=== PATIENT | female | born 1975 | race African-American/Black ===

== ENCOUNTER 2016-04-22 19:53 | Emergency (ER) | payer MEDICAID ==
[2016-04-22 19:58] VITALS: BP 139/96; PULSE 108; RESP 16; TEMP 98.4; O2SAT 94
[2016-04-22] MEDS ORDERED: SKIN ADHESIVE (DERMABOND) 1 EACH TP ONE ×2 (20:19→20:38)
--- NOTE | 2016-04-22 20:23 | EDPHY ---
H & P Stated Complaint: r hand laceration - Personal History LMP (Females 10-55): Now Current Tetanus/Diphtheria Vaccine: Yes Tetanus Vaccine Date: 12/2013 - Medical/Surgical History Hx Asthma: No Hx Chronic Respiratory Disease: No Hx Diabetes: No Hx Cardiac Disease: No Hx Renal Disease: No Hx Cirrhosis: No Hx Alcoholism: No Hx HIV/AIDS: No Hx Splenectomy or Spleen Trauma: No Other PMH: PMHx: Denies. PSHx: denies - Social History Smoking Status: Current every day smoker HPI/ROS: CHIEF COMPLAINT: Hand laceration HISTORY OF PRESENT ILLNESS: right hand dominant patient complains of laceration to the base of the right thumb that occurred this evening while washing dishes. She thinks it was a glass bowl in The sink that had a sharp edge. she sustained a laceration to the thenar eminence of the right hand. This is very superficial and she was hesitant to even come to the emergency department. No deficits of the flexor apparatus. No significant pain. No complaints distal to the injury. Her last tetanus shot was given less than 10 years ago. No injuries elsewhere. No other associated complaints or modifying factors. REVIEW OF SYSTEMS: Ten systems reviewed and are negative unless otherwise noted in the HPI EXAMINATION General Appearance: Alert, no distress Head: normocephalic, atraumatic Eyes: Pupils equal and round, no conjunctival pallor or injection Neck: Normal inspection Respiratory: No retractions or distress Cardiovascular: Regular rate. high-risk cap refill in all 10 fingers failure symmetric pulses radially Gastrointestinal: no abdominal distention Neurological: A&O, sensory intact bilaterally. Strength is 5/5 both upper extremities. Two-point sensation intact in the affected extremity Skin: Warm and dry. 2 cm superficial laceration of the thenar eminence of the right thumb. No foreign body. Neurovascular intact distally Extremities: laceration to right thumb is noted. Range of motion is fully intact including flexion, extension, opposition, abduction and abduction. MDM: Superficial laceration of the right thumb over the thenar eminence. There is no foreign body. There is no abnormality distally to the wound. There is full range of motion. Wound will be cleaned and closed with Dermabond skin glue was there is no indication for suture repair. Routine wound care as discussed. Follow up as needed. PROCEDURE: Procedure: thumb laceration Consent: verbal Location: right thumb, thenar eminence Length of repair: 2 cm Complexity: simple Layer involvement: single Anesthesia: none Irrigation: routine Debridement: none Procedure description: wound was cleaned with routine preparation. No foreign body. Skin glue was applied as routine x5. There is good approximation of wound margins. Neurovascular intact distally following the procedure. No complications. Suture/Staple material: skin glue Wound care: as discussed. No topical applications until skin glue dissolves Suture/Staple removal: none SUPERVISION: This patient was independently evaluated without the aide of supervising physician. (Ammon Reynolds) Constitutional: Initial Vital Signs Temperature (C) 36.9 C 04/22/16 19:55 Heart Rate 108 H 04/22/16 19:55 Respiratory Rate 16 04/22/16 19:55 Blood Pressure 139/96 H 04/22/16 19:55 O2 Sat (%) 94 04/22/16 19:55 O2 Delivery Mode Room Air Allergies/Adverse Reactions: No Known Allergies Allergy (Verified 10/01/14 19:40) Home Medications: Medication Instructions Recorded NK [No Known Home Meds] 04/22/16 Medical Decision Making Other Provider: The patient wasevaluatedand managed by themndlevel provider. My co- signature indicates that ave reviewed this chart and I agree with the findings and plan of care asdocumented. I am the secondary supervising physician. (Arabella Echols) - Data Points Medications Given: Discontinued Medications Octyl Cyanoacrylate (Dermabond) 1 each TP EDNOW ONE Stop: 04/22/16 20:39 Last Admin: 04/22/16 20:40 Dose: 1 each Departure - Departure Disposition: Home, Routine, Self-Care Clinical Impression: Laceration Condition: Good Instructions: Laceration (ED), Skin Adhesive Care (ED) Additional Instructions: no topical applications to the wound until the skin glue as completely dissolved. No vigorous scrubbing. Return to the emergency department for any signs or symptoms of infection as discussed. Referrals: NONE *PRIMARY CARE P,. [Primary Care Provider] - As per Instructions
== END 2016-04-22 20:52 | disposition home or self-care (01) ==
PROC: 0HQFXZZ Repair Right Hand Skin, External Approach (ICD-10-PCS; principal; 2016-04-22)
DX: S61.021A Laceration with foreign body of right thumb without damage to nail, initial encounter (principal); F17.200 Nicotine dependence, unspecified, uncomplicated; W25.XXXA Contact with sharp glass, initial encounter

== ENCOUNTER 2016-07-10 06:07 | Emergency (ER) | payer MEDICAID ==
--- NOTE | 2016-07-10 06:14 | EDPHY ---
H & P Stated Complaint: fever, malaise, MARTINEZ, prod cough x1 week HPI/ROS: HPI CHIEF COMPLAINT: Fever, chills, muscle aches, hyper skin sensitivity, cough with productive green sputum HISTORY OF PRESENT ILLNESS: This patient very pleasant 40-year-old female denies any significant medical history or surgical history presents emergency room with 1 week or 7 days of joint pain, muscle aches, skin sensitivity, cough that is turn productive with green sputum and fever. Patient tells me her last few was 101 at around 6:30 pm last night. Last dose of Tylenol Motrin was earlier in the day around 9:30 a.m.. She is not taking the antipyretics this evening. She decided to come to the emergency room early this morning around 615am, as she cannot sleep. She complaining muscle aches joint pain skin hypersensitivity. She denies stiff neck or severe headache. She does complain of a throbbing headache at times over the past week. No meningeal signs. She does endorse nausea no vomiting. No urinary symptoms. No flank pain. She endorses 2 episodes of watery diarrhea no blood. No abdominal pain. Past Medical History: No significant medical history Past Surgical History: No significant surgical history Social History: Denies daily use of drugs alcohol tobacco products lives locally Family History: Noncontributory ROS REVIEW OF SYSTEMS: A comprehensive 10 point review of systems is otherwise negative aside from elements mentioned in the history of present illness. Exam Constitutional appears well nontoxic triage nursing summary reviewed, vital signs reviewed, awake/alert. (tachycardia) Eyes normal conjunctivae and sclera, EOMI, PERRLA. HENT normal inspection, atraumatic, moist mucus membranes, no epistaxis, neck supple/ no meningismus, no raccoon eyes. Respiratory clear to auscultation bilaterally, normal breath sounds, no respiratory distress, no wheezing. Cardiovascular tachycardic, regular rhythm, no murmur, no edema, distal pulses normal. Gastrointestinal soft, non-tender, no rebound, no guarding, normal bowel sounds, no distension, no pulsatile mass. Genitourinary no CVA tenderness. Musculoskeletal no midline vertebral tenderness, full range of motion, no calf swelling, no tenderness of extremities, no meningismus, good pulses, neurovascularly intact. Skin no rash, pink, warm, & dry, no rash, skin atraumatic. Neurologic no meningeal signs,awake, alert and oriented x 3, AAOx3, moves all 4 extremities equally, motor intact, sensory intact, CN II-XII intact, normal cerebellar, normal vision, normal speech. Psychiatric normal mood/affect. Heme/Lymph/Immune no lymphadenopathy. Differential Diagnosis: includes but is not limited to in a particular order, viral syndrome, upper respiratory tract infection, viral pneumonia, bacterial pneumonia, sepsis, bacteremia, influenza, dehydration, electrolyte abnormality, UTI Medical Decision Making: Plan for this patient should have an IV established obtain blood work, will test for influenza she will two view chest x-ray to rule pneumonia, patient received IV fluids. Ibuprofen for pain control. She has no fever here no meningeal signs she appears well nontoxic. Will check urinalysis, chest x-ray, blood work and influenza. Re-evaluation: ED x-ray chest two view: negative for acute cardiopulmonary disease. Specifically I do not appreciate acute focal pneumonia. 0700AM: Patient is positive for influenza B this is what is causing her muscle aches, joint pain, sensitive skin. She initially came in here afebrile heart rate 130s. She is receiving her 2nd L fluid at this time. I will allow her to go home after heart rate comes down and she is well-hydrated. She understands drink lots of fluids stay well hydrated keep her fever down with Tylenol Motrin. Return to the emergency room if any worsening symptoms. No pneumonia visualized on her chest x-ray. Blood work is reassuring influenza B positive. Source: Patient - Personal History LMP (Females 10-55): Now Current Tetanus/Diphtheria Vaccine: Yes Current Tetanus Diphtheria and Acellular Pertussis (TDAP): Yes Tetanus Vaccine Date: 12/2013 - Medical/Surgical History Hx Asthma: No Hx Chronic Respiratory Disease: No Hx Diabetes: No Hx Cardiac Disease: No Hx Renal Disease: No Hx Cirrhosis: No Hx Alcoholism: No Hx HIV/AIDS: No Hx Splenectomy or Spleen Trauma: No Other PMH: PMHx: Denies. PSHx: denies - Social History Smoking Status: Former smoker Constitutional: Initial Vital Signs Temperature (C) 37.3 C 07/10/16 06:11 Heart Rate 135 H 07/10/16 06:11 Respiratory Rate 18 07/10/16 06:11 Blood Pressure 105/86 H 07/10/16 06:11 O2 Sat (%) 94 07/10/16 06:11 O2 Delivery Mode Room Air Allergies/Adverse Reactions: No Known Allergies Allergy (Verified 10/01/14 19:40) Home Medications: Medication Instructions Recorded NK [No Known Home Meds] 04/22/16 Medical Decision Making - Data Points Laboratory Results: Laboratory Results 07/10/16 06:30 07/10/16 07/10/16 07/10/16 06:30 06:30 06:30 WBC 6.63 10^3/uL 10^3/uL (3.80-9.50) RBC 5.74 10^6/uL H 10^6/uL (4.18-5.33) Hgb 13.8 g/dL g/dL (12.6-16.3) Hct 42.5 % % (38.0-47.0) MCV 74.0 fL L fL (81.5-99.8) MCH 24.0 pg L pg (27.9-34.1) MCHC 32.5 g/dL g/dL (32.4-36.7) RDW 16.0 % H % (11.5-15.2) Plt Count 279 10^3/uL 10^3/uL (150-400) MPV 9.5 fL fL (8.7-11.7) Neut % (Auto) 51.4 % % (39.3-74.2) Lymph % (Auto) 37.4 % % (15.0-45.0) [place] % (Auto) 10.3 % % (4.5-13.0) Eos % (Auto) 0.3 % L % (0.6-7.6) Baso % (Auto) 0.3 % % (0.3-1.7) Nucleat RBC Rel Count 0.0 % % (0.0-0.2) Absolute Neuts (auto) 3.41 10^3/uL 10^3/uL (1.70-6.50) Absolute Lymphs (auto) 2.48 10^3/uL 10^3/uL (1.00-3.00) Absolute Monos (auto) 0.68 10^3/uL 10^3/uL (0.30-0.80) Absolute Eos (auto) 0.02 10^3/uL L 10^3/uL (0.03-0.40) Absolute Basos (auto) 0.02 10^3/uL 10^3/uL (0.02-0.10) Absolute Nucleated RBC 0.00 10^3/uL 10^3/uL (0-0.01) Immature Gran % 0.3 % % (0.0-1.1) Immature Gran # 0.02 10^3/uL 10^3/uL (0.00-0.10) VBG Lactic Acid 0.9 mmol/L mmol/L (0.7-2.1) Sodium Potassium Chloride Carbon Dioxide Anion Gap BUN Creatinine Estimated GFR Glucose Calcium Total Bilirubin Conjugated Bilirubin Unconjugated Bilirubin AST ALT Alkaline Phosphatase Total Protein Albumin Influenza Typ A,B (DFA) POSITIVE FOR FLU B H (NEGATIVE) 07/10/16 06:30 WBC RBC Hgb Hct MCV MCH MCHC RDW Plt Count MPV Neut % (Auto) Lymph % (Auto) [place] % (Auto) Eos % (Auto) Baso % (Auto) Nucleat RBC Rel Count Absolute Neuts (auto) Absolute Lymphs (auto) Absolute Monos (auto) Absolute Eos (auto) Absolute Basos (auto) Absolute Nucleated RBC Immature Gran % Immature Gran # VBG Lactic Acid Sodium Pending Potassium Pending Chloride Pending Carbon Dioxide Pending Anion Gap Pending BUN Pending Creatinine Pending Estimated GFR Pending Glucose Pending Calcium Pending Total Bilirubin Pending Conjugated Bilirubin Pending Unconjugated Bilirubin Pending AST Pending ALT Pending Alkaline Phosphatase Pending Total Protein Pending Albumin Pending Influenza Typ A,B (DFA) Medications Given: Discontinued Medications Sodium Chloride (Ns) 2,000 mls @ 0 mls/hr IV ONCE ONE PRN Reason: Wide Open Stop: 07/10/16 06:19 Last Admin: 07/10/16 06:34 Dose: 2,000 mls Ibuprofen (Motrin) 800 mg PO EDNOW ONE Stop: 07/10/16 06:20 Last Admin: 07/10/16 06:34 Dose: 800 mg Departure - Departure Disposition: Home, Routine, Self-Care Clinical Impression: Dehydration, Viral syndrome, Influenza B Condition: Good Instructions: Influenza (ED) Additional Instructions: 1. Make sure to drink lots of fluids stay well-hydrated. 2. keep her fever down Tylenol and Motrin you can alternate these every 4 hours. 3. Return emergency room if develops worsening symptoms includes high fever, vomiting shortness of breath chest pain or you do not feel well. Referrals: NONE *PRIMARY CARE P,. [Primary Care Provider] - As per Instructions
[2016-07-10] MEDS ORDERED: NS 2,000 ML IV ONE (06:18)
[2016-07-10] MEDS ORDERED: IBUPROFEN 200 MG TAB PO ONE (06:19)
[2016-07-10 06:46] LABS: % IMMATURE GRANULYOCYTES 0.3 % (0.0-1.1); ABSOLUTE IMMATURE GRANULOCYTES 0.02 10^3/uL (0.00-0.10); ADD DIFF? NO; ADD MORPH? NO; ADD SCAN? NO; ATYPICAL LYMPHOCYTE FLAG 50 (0-99); FRAGMENT RBC FLAG 10 (0-99); HEMATOCRIT 42.5 % (38.0-47.0); HEMOGLOBIN 13.8 g/dL (12.6-16.3); LEFT SHIFT FLG 0 (0-99); LIPEMIA HEMOLYSIS FLAG 80 (0-99); MEAN CELL HEMOGLOBIN CONCENTR. 32.5 g/dL (32.4-36.7); MEAN PLATELET VOLUME 9.5 fL (8.7-11.7); PLATELET CLUMPS FLAG 0 (0-99); PLATELET COUNT 279 10^3/uL (150-400); RED BLOOD CELL COUNT 5.74 10^6/uL (4.18-5.33)
[2016-07-10 07:01] VITALS: RESP 16
[2016-07-10 07:02] LABS: ALANINE AMINOTRANSFERASE 29 IU/L (9-52); ALBUMIN 4.3 g/dL (3.5-5.0); ALKALINE PHOSPHATASE 65 IU/L (38-126); ANION GAP 13 mEq/L (8-16); ASPARTATE AMINOTRANSFERASE 26 IU/L (14-46); BILIRUBIN,TOTAL 0.4 mg/dL (0.1-1.4); BILIRUBIN-CONJUGATED 0.4 mg/dL (0.0-0.5); CALCIUM 9.1 mg/dL (8.5-10.4); CARBON DIOXIDE 21 mEq/l (22-31); CHLORIDE 104 mEq/L (97-110); CREATININE 0.9 mg/dL (0.6-1.0); GLOMERULAR FILTRATION RATE > 60; GLUCOSE 133 mg/dL (70-100); POTASSIUM 4.1 mEq/L (3.5-5.2); SODIUM 138 mEq/L (134-144); TOTAL PROTEIN 7.7 g/dL (6.3-8.2)
[2016-07-10 08:13] VITALS: BP 110/82; PULSE 92; TEMP 98.7; O2SAT 91
== END 2016-07-10 08:11 | disposition home or self-care (01) ==
DX: J10.1 Influenza due to other identified influenza virus with other respiratory manifestations (principal); E86.0 Dehydration; B34.9 Viral infection, unspecified; Z87.891 Personal history of nicotine dependence

== ENCOUNTER → 2016-09-03 | Outpatient (CLI) | payer MEDICAID | LOC: FIMAGING 13:44 | PROVIDERS: ATTEND Nurse Practitioner Women's Health | DX: N63 Unspecified lump in breast (principal) | CPT/HCPCS: G0204 ==

== ENCOUNTER 2016-11-27 18:28 | Emergency (ER) | payer MEDICAID ==
[2016-11-27 18:47] VITALS: O2SAT 96
--- NOTE | 2016-11-27 22:13 | EDPHY ---
H & P Stated Complaint: "History of Strep" sore throat x 3 days HPI/ROS: HPI CHIEF COMPLAINT: Sore throat x3 days HISTORY OF PRESENT ILLNESS: This patient otherwise healthy 41-year-old female, no significant medical history does not take any daily medications, no allergies , she presents emergency room 3 days of sore throat. Denies fever. Denies trouble swallowing. Denies drooling. No change in voice. States she has had strep throat multiple times. Past Medical History: Strep pharyngitis. Past Surgical History: No recent surgery Social History: Denies daily use of drugs alcohol tobacco products. Family History: Noncontributory ROS REVIEW OF SYSTEMS: A comprehensive 10 point review of systems is otherwise negative aside from elements mentioned in the history of present illness. Exam Constitutional appears well nontoxic, vital signs stable. triage nursing summary reviewed, vital signs reviewed, awake/alert. Eyes normal conjunctivae and sclera, EOMI, PERRLA. HENT oropharynx 3+ tonsillar bed erythema, no exudate, uvula midline, no signs of Darius's, normal inspection, atraumatic, moist mucus membranes, no epistaxis, neck supple/ no meningismus, no raccoon eyes. Respiratory clear to auscultation bilaterally, normal breath sounds, no respiratory distress, no wheezing. Cardiovascular rate normal, regular rhythm, no murmur, no edema, distal pulses normal. Gastrointestinal soft, non-tender, no rebound, no guarding, normal bowel sounds, no distension, no pulsatile mass. Genitourinary no CVA tenderness. Musculoskeletal no midline vertebral tenderness, full range of motion, no calf swelling, no tenderness of extremities, no meningismus, good pulses, neurovascularly intact. Skin pink, warm, & dry, no rash, skin atraumatic. Neurologic awake, alert and oriented x 3, AAOx3, moves all 4 extremities equally, motor intact, sensory intact, CN II-XII intact, normal cerebellar, normal vision, normal speech. Psychiatric normal mood/affect. Heme/Lymph/Immune no lymphadenopathy. Differential Diagnosis: Includes but is not limited to in a particular order, viral pharyngitis, strep pharyngitis, mono Medical Decision Making: Plan for this patient rapid strep is negative. However given her recurrent strep pharyngitis will treat empirically. Amoxicillin. Close ENT follow-up. She understands return emergency room if she has any worsening symptoms questions concerns. 1st dose of amoxicillin given here in emergency room prescription for rest. 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 Source: Patient - Personal History LMP (Females 10-55): Irregular Current Tetanus Diphtheria and Acellular Pertussis (TDAP): Yes Tetanus Vaccine Date: 12/2013 - Medical/Surgical History Hx Asthma: No Hx Chronic Respiratory Disease: No Hx Diabetes: No Hx Cardiac Disease: No Hx Renal Disease: No Hx Cirrhosis: No Hx Alcoholism: No Hx HIV/AIDS: No Hx Splenectomy or Spleen Trauma: No Other PMH: Hx strep throat - Social History Smoking Status: Former smoker Constitutional: Initial Vital Signs Temperature (C) 37.0 C 11/27/16 18:43 Heart Rate 96 11/27/16 18:43 Respiratory Rate 14 11/27/16 18:43 Blood Pressure 128/81 H 11/27/16 18:43 O2 Sat (%) 96 11/27/16 18:43 O2 Delivery Mode Room Air Allergies/Adverse Reactions: No Known Allergies Allergy (Verified 10/01/14 19:40) Home Medications: Medication Instructions Recorded Amoxicillin 500 mg PO TID 7 Days 11/27/16 Medical Decision Making - Data Points Laboratory Results: 11/27/16 11/27/16 Unknown 19:30 Group A Strep Screen NEGATIVE (NEGATIVE) Group A Strep DNA Pending Departure - Departure Disposition: Home, Routine, Self-Care Clinical Impression: Pharyngitis Qualifiers: Pharyngitis/tonsillitis etiology: unspecified etiology Qualified Code(s): J02.9 - Acute pharyngitis, unspecified Condition: Good Instructions: Pharyngitis (ED) Additional Instructions: 1. Drink lots of fluids stay well-hydrated. 2. Take ibuprofen or Tylenol for pain control. 3. Complete her course of antibiotics. 4. Follow up with ENT. Referrals: UNKNOWN,DOCTOR [Other] - As per Instructions Harvey Lomeli MD [Medical Doctor] - As per Instructions Prescriptions: Amoxicillin 500 mg PO TID 7 Days
[2016-11-27 22:21] VITALS: BP 121/74; PULSE 787; RESP 16; TEMP 98.2
== END 2016-11-27 22:21 | disposition home or self-care (01) ==
DX: J02.9 Acute pharyngitis, unspecified (principal); Z87.891 Personal history of nicotine dependence

== ENCOUNTER 2017-06-04 14:33 | Emergency (ER) | payer MEDICAID ==
[2017-06-04] MEDS ORDERED: HYDROCODONE/APAP 5/325 TAB PO ONE (15:18)
[2017-06-04] MEDS ORDERED: IBUPROFEN 600 MG TAB PO ONE (15:18)
--- NOTE | 2017-06-04 15:20 | EDPHY ---
H & P Time Seen by Provider: 06/04/17 15:06 HPI/ROS: CHIEF COMPLAINT: Left knee pain HISTORY OF PRESENT ILLNESS: 11:00 a.m. Patient was pivoting off the couch and moved her knee and had sudden onset of pain. It is located mostly just superior to her patella and worse with any attempt extend the knee. No direct blow and no weakness or numbness in the foot. REVIEW OF SYSTEMS: No skin changes PAST MEDICAL HISTORY: 3 knee surgeries including left ACL, meniscus repair, and a debridement. Last [place] [address] [place] in [place] General Appearance: Alert and conversant, cooperative. Left knee is not swollen and no effusion is noted. Held in flexion and can't really extended. Passive extension is stopped by pain with the patient at 45. No joint line tenderness. Stable to anterior and posterior drawer and negative Minor's. Normal distal motor sensory and vascular. Skin intact. Can range her knee 90-45 without pain. Emergency Department course/MDM: Oral ibuprofen 600, 1 Vicodin. Clinical suspicion for quadriceps tendon rupture. Left knee x-ray ordered. She does have crutches. 1600: X-rays reviewed, knee immobilizer and pain medications, orthopedic follow -up next week. Warned also possible could have meniscal injury, will need orthopedic follow-up in the office for definitive diagnosis and treatment. Smoking Status: Former smoker Constitutional: Initial Vital Signs Temperature (C) 36.7 C 06/04/17 14:40 Heart Rate 84 06/04/17 14:40 Respiratory Rate 18 06/04/17 14:40 Blood Pressure 151/102 H 06/04/17 14:40 O2 Sat (%) 97 06/04/17 14:40 O2 Delivery Mode Room Air Allergies/Adverse Reactions: No Known Allergies Allergy (Verified 06/04/17 14:40) Home Medications: Medication Instructions Recorded Hydrocodone/APAP 5/325 [[place] 1 - 2 tab PO Q4-6PRN PRN #11 tab 06/04/17 5/325] MDM/Departure - MDM Imaging Results: Imaging Impressions Knee X-Ray 06/04/17 15:18 Impression: Post ACL repair, with moderate tricompartmental osteoarthritis, that has overall significantly progressed since February 2012. Medications Given: Discontinued Medications Hydrocodone Bitart/Acetaminophen ([place] 5/325) 1 tab PO EDNOW ONE Stop: 06/04/17 15:19 Last Admin: 06/04/17 15:21 Dose: 1 tab Ibuprofen (Motrin) 600 mg PO EDNOW ONE Stop: 06/04/17 15:19 Last Admin: 06/04/17 15:21 Dose: 600 mg - Depart Disposition: Home, Routine, Self-Care Clinical Impression: possible left quadriceps tendon rupture Knee pain, left Qualifiers: Chronicity: acute Qualified Code(s): M25.562 - Pain in left knee Condition: Good Instructions: Knee Pain (ED), Knee Immobilizer (ED) Prescriptions: Hydrocodone/APAP 5/325 [[place] 5/325] 1 - 2 tab PO Q4-6PRN PRN #11 tab PRN Reason: For Pain Referrals: Mayur Curry MD [Medical Doctor] - 2-3 days without fail
[2017-06-04 16:05] VITALS: BP 136/96; PULSE 98; RESP 20; TEMP 98.2; O2SAT 99
== END 2017-06-04 16:33 | disposition home or self-care (01) ==
DX: M25.562 Pain in left knee (principal); Z87.891 Personal history of nicotine dependence

== ENCOUNTER → 2017-06-15 | Outpatient (CLI) | payer MEDICAID | LOC: FIMAGING 14:53 | PROVIDERS: ATTEND Advanced Practice Midwife | DX: R92.8 Other abnormal and inconclusive findings on diagnostic imaging of breast (principal) ==

== ENCOUNTER 2017-09-22 18:15 | Emergency (ER) | payer MEDICAID ==
[2017-09-22 18:21] VITALS: BP 111/70
--- NOTE | 2017-09-22 19:38 | EDPHY ---
H & P Stated Complaint: itchy rash for 3 days Source: Patient Exam Limitations: No limitations - Personal History LMP (Females 10-55): 15-21 Days Ago Current Tetanus Diphtheria and Acellular Pertussis (TDAP): Yes Tetanus Vaccine Date: 12/2013 - Medical/Surgical History Hx Asthma: No Hx Chronic Respiratory Disease: No Hx Diabetes: No Hx Cardiac Disease: No Hx Renal Disease: No Hx Cirrhosis: No Hx Alcoholism: No Hx HIV/AIDS: No Hx Splenectomy or Spleen Trauma: No Other PMH: ACL repair in past - Social History Smoking Status: Current some day smoker Time Seen by Provider: 09/22/17 19:35 HPI/ROS: HPI: This is a 41-year-old female who presents with Chief Complaint: Rash Location: Arms torso neck Quality: Rash Duration: 3 days Signs and Symptoms: no fever, no nausea, no vomiting, no diarrhea, no urinary symptoms, no chest pain, no shortness of breath, no wheezing, no cough, no sore throat, no neck stiffness, no joint pain, no swollen glands, no ear pain, + rash Timing: Daily Severity: [id number] Context: Patient presents with complaints of generalized rash that is pruritic in nature for the last 3 days that is not responding to Benadryl and over-the- counter steroid cream. She denies any previous history of psoriasis or eczema. She has not eaten any new foods or tried any new detergents, lotions, perfumes. She denies actually having hives. She describes the rash as tiny pinpoint raised normal pigmented lesions covering her arms abdomen back neck and legs. No other family member have this rash. Patient denies any fever, sore throat, upper respiratory symptoms. Modifying Factors: See above Comment: ROS: see HPI Constitutional: + fever, no chills, no weight loss Eyes: No blurred vision Respiratory: No shortness of breath, no cough Cardiovascular: No chest pain, no palpitations Gastrointestinal: No nausea, no vomiting, no diarrhea, no hematemesis, no blood in stool Genitourinary: No dysuria, no blood in urine Extremities: No myalgias, no edema Neurologic: No weakness, no numbness Skin: No rashes, no petechiae Hematologic: No bruising, no bleeding MEDICAL/SURGICAL/SOCIAL HISTORY: Medical history: Generally healthy. Does not take any regular medications. Surgical history: ACL repair Social history: Family history noncontributory. CONSTITUTIONAL: Extremely well-appearing polite and cooperative female, awake and alert, no obvious distress HEENT: Atraumatic and normocephalic, PERRL, EOMI. Nares patent; no rhinorrhea; no nasal mucosal edema. Tympanic membranes clear. Oropharynx clear, no exudate and moist pink mucosa. Airway patent. No lymphadenopathy. No meningismus. Cardiovascular: Normal S1/S2, regular rate, regular rhythm, without murmur rub or gallop. PULMONARY/CHEST: Symmetrical and nontender. Clear to auscultation bilaterally. Good air movement. No accessory muscle usage. ABDOMEN: Soft, nondistended, nontender, no rebound, no guarding, no peritoneal signs, no masses or organomegaly. No CVAT. EXTREMITIES: 2/2 pulses, strength 5/5, no deformities, no clubbing, no cyanosis or edema. NEUROLOGICAL: no focal neuro deficits. GCS 15. SKIN: Warm and dry, fine pinpoint normal pigmented rash noted on arms torso neck legs; blanches with palpation; no vesicles; no blisters; no petechiae. no erythema. no rash. Good capillary refill. (Sarahy Dangelo) Constitutional: Initial Vital Signs Temperature (C) 36.6 C 09/22/17 18:19 Heart Rate 88 09/22/17 18:19 Respiratory Rate 17 09/22/17 18:19 Blood Pressure 111/70 09/22/17 18:19 O2 Sat (%) 97 09/22/17 18:19 O2 Delivery Mode Room Air Allergies/Adverse Reactions: No Known Allergies Allergy (Verified 09/22/17 18:18) Home Medications: Medication Instructions Recorded predniSONE [predniSONE TAPER] 10 mg PO DAILY 6 Days ea 09/22/17 Medical Decision Making ED Course/Re-evaluation: I did not see this patient while she was in the emergency department. However her care was discussed with the PA while the patient was in the department. I agree with treatment plan and management (Domenic Sesay) Vital signs reviewed and stable. No systemic signs. Patient does not have any upper respiratory symptoms or sore throat to indicate scarlatina. Patient was given a 6 days steroid taper. No signs of scabies or bedbugs. This patient was seen under the supervision of my secondary supervising physician. I evaluated care for this patient independently. Discussed this patient with Dr. Sesay who did not see the patient. (Sarahy Dangelo) Differential Diagnosis: Differential diagnosis includes but is not limited to scarlet tenia, contact dermatitis, allergic reaction, anaphylaxis, ITP. (Sarahy Dangelo) Departure - Departure Disposition: Home, Routine, Self-Care Clinical Impression: Rash in adult, Dermatitis Condition: Good Instructions: Contact Dermatitis (ED) Additional Instructions: Take steroid taper as directed. Use Benadryl 25-50 mg every 4-6 hours as needed for itching, allergic reaction. Referrals: [facility],. [Clinic] - 5-7 days, if not improved Prescriptions: predniSONE [predniSONE TAPER] 10 mg PO DAILY 6 Days ea
== END 2017-09-22 19:50 | disposition home or self-care (01) ==
DX: L30.9 Dermatitis, unspecified (principal); F17.200 Nicotine dependence, unspecified, uncomplicated

== ENCOUNTER 2018-03-27 18:33 | Emergency (ER) | payer MEDICAID ==
[2018-03-27] MEDS ORDERED: NS 2,000 ML IV ONE (20:06)
--- NOTE | 2018-03-27 20:07 | EDPHY ---
H & P Stated Complaint: Cough, sore throat, congestion for 2 weeks. - Personal History LMP (Females 10-55): Current Tetanus Diphtheria and Acellular Pertussis (TDAP): Yes Tetanus Vaccine Date: 12/2013 - Medical/Surgical History Hx Asthma: No Hx Chronic Respiratory Disease: No Hx Diabetes: No Hx Cardiac Disease: No Hx Renal Disease: No Hx Cirrhosis: No Hx Alcoholism: No Hx HIV/AIDS: No Hx Splenectomy or Spleen Trauma: No Other PMH: ACL repair in past - Social History Smoking Status: Current some day smoker Time Seen by Provider: 03/27/18 19:59 HPI/ROS: CHIEF COMPLAINT: URI symptoms x2 weeks HISTORY OF PRESENT ILLNESS: 42-year-old female, immunocompetent, daily smoker, complaining of 2 weeks of cough, congestion, otalgia, sore throat . Notes decreased urine output. Denies: Dyspnea, chest pain, back pain, abdominal pain , nausea, vomiting, rash PRIMARY CARE PROVIDER: REVIEW OF SYSTEMS: 10 systems reviewed and negative with the exception of the elements mentioned in the history of present illness PAST MEDICAL & SURGICAL HISTORY: No pertinent medical or surgical history SOCIAL HISTORY: Daily smoker PHYSICAL EXAM (Prior to examination, patient consented to physical exam, hands were washed and my usual and customary physical exam procedures followed) 1) GENERAL: Well-developed, well-nourished, alert and oriented. Appears nontoxic 2) HEAD: Normocephalic, atraumatic 3) HEENT: Pupils equal, round, reactive to light bilaterally. Sclera anicteric. Nasopharynx, oropharynx, clear, no lesions. Dry mucous membranes. No tonsillar enlargement or exudate Ears bilaterally with normal tympanic membranes. 4) NECK: Full range of motion, no meningeal signs. 5) LUNGS: Clear auscultation bilaterally, no wheezes, no rhonchi, no retractions. 6) HEART: Regular rate and rhythm, no murmur, no heave, no gallop. 7) ABDOMEN: No guarding, no rebound, no focal tenderness, negative McBurney's, negative Oseguera's, negative Rovsing's, negative peritoneal sign, 8) MUSCULOSKELETAL: Moving all extremities, no focal areas of tenderness, no obvious trauma. No peripheral edema or discoloration. 9) BACK: No CVA tenderness, no midline vertebral tenderness, no fluctuance, no step-off, no obvious trauma, no visual or palpable abnormality. 10) SKIN: No rash, no petechiae. 11) Psychiatric: Patient is oriented X 3, there is no agitation. DIFFERENTIAL DIAGNOSIS: In no particular order including but not limited to pneumonia, bronchitis, meningitis (Tiffany Galvez) Constitutional: Initial Vital Signs Temperature (C) 36.7 C 03/27/18 18:35 Heart Rate 116 H 18 18:35 Respiratory Rate 18 03/27/18 18:35 Blood Pressure 132/80 H 03/27/18 18:35 O2 Sat (%) 97 03/27/18 18:35 O2 Delivery Mode Room Air Allergies/Adverse Reactions: No Known Allergies Allergy (Verified 09/22/17 18:18) Home Medications: Medication Instructions Recorded Azithromycin [Zithromax] 500 mg PO DAILY #1 tablet 03/27/18 Medical Decision Making ED Course/Re-evaluation: 8:06 p.m.: Patient noted to be tachycardic and notes decreased urine output and decreased oral intake secondary to feeling sick. She will be given IV fluids in the ER. At this time will hold on chest x-ray as I plan on treating for with prescription for azithromycin. Care of patient under supervision of secondary supervising physician Dr Cecily Hogan. 9:08 p.m.: Re-evaluation after IV fluids, heart rate in the 90s. Feeling improvement. Plan will be discharge. (Tiffany Galvez) I did not see this patient while she was in the emergency department. However her care was discussed with the PA while the patient was in the department. I agree with treatment plan and management (Domenic Sesay) - Data Points Medications Given: Discontinued Medications Acetaminophen (Tylenol) 1,000 mg PO EDNOW ONE Stop: 03/27/18 21:54 Last Admin: 03/27/18 21:56 Dose: 1,000 mg Sodium Chloride (Ns) 2,000 mls @ 0 mls/hr IV ONCE ONE PRN Reason: Wide Open Stop: 03/27/18 20:07 Last Admin: 03/27/18 20:40 Dose: 2,000 mls Ibuprofen (Motrin) 800 mg PO EDNOW ONE Stop: 03/27/18 21:54 Last Admin: 03/27/18 21:59 Dose: 800 mg Departure - Departure Disposition: Home, Routine, Self-Care Clinical Impression: Upper respiratory infection, Cigarette nicotine dependence Condition: Good Instructions: Upper Respiratory Infection (ED) Additional Instructions: Return to the emergency department immediately for change in breathing habits, change in voice, change in swallowing habits, change in mental status, or any other symptoms that concern you. Referrals: [facility],. [Clinic] - 2-3 days, if not improved Prescriptions: Azithromycin [Zithromax] 500 mg PO DAILY #1 tablet
[2018-03-27] MEDS ORDERED: IBUPROFEN 800 MG TAB PO ONE (21:53)
[2018-03-27] MEDS ORDERED: ACETAMINOPHEN 500 MG TAB PO ONE (21:53)
[2018-03-27 22:03] VITALS: BP 127/94
== END 2018-03-27 22:02 | disposition home or self-care (01) ==
DX: J06.9 Acute upper respiratory infection, unspecified (principal); F17.200 Nicotine dependence, unspecified, uncomplicated

== ENCOUNTER → 2018-06-29 | Outpatient (CLI) | payer MEDICAID | LOC: FIMAGING 13:12 | PROVIDERS: ATTEND Obstetrics & Gynecology | DX: O09.522 Supervision of elderly multigravida, second trimester (principal); O09.212 Supervision of pregnancy with history of pre-term labor, second trimester; O99.332 Smoking (tobacco) complicating pregnancy, second trimester; Z3A.24 24 weeks gestation of pregnancy ==

== ENCOUNTER → 2018-08-10 | Outpatient (CLI) | payer MEDICAID | LOC: FIMAGING 09:16 | PROVIDERS: ATTEND Obstetrics & Gynecology | DX: O09.523 Supervision of elderly multigravida, third trimester (principal); Z3A.30 30 weeks gestation of pregnancy; Z87.51 Personal history of pre-term labor ==

== ENCOUNTER → 2018-09-12 | Outpatient (CLI) | payer MEDICAID | LOC: FIMAGING 14:28 ==

== ENCOUNTER 2018-10-05 14:05 | Observation (INO) | payer MEDICAID | END 2018-10-05 16:45 | disposition home or self-care (01) | LOC: FLD 14:05 ==

== ENCOUNTER 2018-10-05 23:20 | Inpatient (IN) | payer MEDICAID | END 2018-10-08 14:15 | disposition home or self-care (01) | LOC: FLD 23:20 → FOB 10-06 03:45 ==